=== PATIENT | male | born 1985 | race Hispanic/Latino ===

== ENCOUNTER → 2020-10-04 13:03 | Outpatient (CLI) | payer OTHER, SELFPAY ==
[2020-10-04 16:06] LABS: COVID19 -Nasal RAPID Negative (Negative)
== END ==
PROVIDERS: Visit Provider Physician Assistant
DX: Z01.812 Encounter for preprocedural laboratory examination (principal); Z20.822 Contact with and (suspected) exposure to COVID-19
CPT/HCPCS: 87635

== ENCOUNTER → 2020-10-05 15:10 | Outpatient (CLI) | payer OTHER, SELFPAY ==
--- NOTE | 2020-10-05 18:14 | DI.NM.S_ITS ---
DATE OF SERVICE: 10/05/2020 PROCEDURE: Exercise treadmill stress test without imaging. ORDERING PROVIDER: Dr. Chi Quintero. INDICATIONS: The patient is a 35-year-old male with atypical chest discomfort and palpitations. FINDINGS: 1. The patient was able to exercise for 12 minutes, 13 seconds on a standard Mayo protocol, suggesting mildly reduced exercise capacity with an MORENO of +9%, achieving 12.8 METs. 2. He had a normal heart rate and blood pressure response to exercise, achieving a maximum heart rate of 182 BPM (98% of his predicted maximum). 3. He had no chest discomfort or other anginal symptoms. 4. His resting ECG shows sinus rhythm with normal ST segments. There are no significant ST-segment shifts or arrhythmias with exercise. IMPRESSION: 1. Normal exercise treadmill stress test with no ECG evidence for ischemia. 2. Mildly impaired exercise capacity without angina or arrhythmias. Man Whitehead - SACHIN/kristen/anuel doc#: [id number]/job#: [id number] dd: 10/05/2020 17:12:00 dt: 10/05/2020 18:01:00 DICTATING /COPIES TO: Moises Mancilla MD; Bhavani Quintero MD COPIES MNE: KRISTEN;
== END ==
PROVIDERS: PCP Family Medicine; Referring Provider Internal Medicine Cardiovascular Disease; Visit Provider Internal Medicine Cardiovascular Disease
DX: R07.89 Other chest pain (principal); R00.2 Palpitations
CPT/HCPCS: 93017